=== PATIENT | female | born 1980 ===

== ENCOUNTER 2017-06-09 14:53 | Day surgery (SDC) | payer BC ==
[2017-06-06 10:46] VITALS: BMI 23.3
[2017-06-09] MEDS ORDERED: LEVOFLOXACIN 500 MG PREMIX BAG IVPB ONE (15:33)
[2017-06-09] MEDS ORDERED: MIDAZOLAM HCL 2 MG/2 ML SINGLE DOSE VIAL ONE (15:35)
[2017-06-09] MEDS ORDERED: PROPOFOL 20 ML ONE (15:39)
--- NOTE | 2017-06-09 15:58 | OP ---
Operative Note - Note: Operative Date: 06/09/17 Pre-Operative Diagnosis: left renal stone Operation: left eswl Findings: 7mm left mid pole stone Post-Operative Diagnosis: Same as Pre-op Surgeon: Antwan Vazquez Anesthesia: Fractional
[2017-06-09] MEDS ORDERED: ONDANSETRON 4 MG/2 ML VIAL IVPUSH PRN (16:08)
[2017-06-09] MEDS ORDERED: oxyCODONE HCL 5 MG TABLET PO PRN (16:08)
[2017-06-09] MEDS ORDERED: LACTATED RINGERS SOLUTION 1,000 ML IV SCH (16:15)
[2017-06-09 17:13] VITALS: TEMP 97.9
[2017-06-09] MEDS ORDERED: oxyCODONE HCL 5 MG TABLET ONE (17:39)
[2017-06-09] MEDS ORDERED: ACETAMINOPHEN 325 MG TABLET (FP) ONE (18:14)
[2017-06-09 19:20] VITALS: BP 108/76; PULSE 71
--- NOTE | 2017-06-10 11:56 | OP ---
DATE OF OPERATION: 06/09/2017 PREOPERATIVE DIAGNOSIS: Left renal stone. POSTOPERATIVE DIAGNOSIS: Left renal stone. PROCEDURE: Left extracorporeal shock wave lithotripsy. ATTENDING: Michael Mars MD ANESTHESIA: General. OPERATION: The patient was brought into the operating room, placed in supine position on the operating room table. Ultrasonography and fluoroscopy were performed. A 7-mm left mid pole stone was identified. The patient was then given preoperative antibiotics, and anesthesia was administered. Shock wave lithotripsy was then started, 2500 impulses at 17 joules of power were administered to the stone with excellent fragmentation of the stone under real-time ultrasonography and fluoroscopy. No complications were noted. The patient tolerated the procedure very well. MICHAEL MARS M.D. [id number]
== END 2017-06-09 18:40 | disposition home or self-care (01) ==
LOC: JASU-SURG 14:53
PROVIDERS: ATTEND Urology
PROC: 0TF4XZZ Fragmentation in Left Kidney Pelvis, External Approach (ICD-10-PCS; principal; 2017-06-09 15:30)
DX: N20.0 Calculus of kidney (principal)
CPT/HCPCS: 84703; 94760